=== PATIENT | male | born 1960 ===

== ENCOUNTER 2017-04-02 16:48 | Inpatient (IN) | payer MEDICAID, OTHER ==
[2017-04-02 16:49] VITALS: BMI 23.7
[2017-04-02 17:56] LABS: CHLORIDE 95 mmol/L (98-107)
[2017-04-02 17:57] LABS: SODIUM 137 mmol/L (132-148)
[2017-04-02 17:59] LABS: ALB/GLOB RATIO 1.1 (1.0-2.1); ALKALINE PHOSPHATASE 94 U/L (38-126); AST/SGOT 85 U/L (17-59); BILIRUBIN,TOTAL 0.9 mg/dL (0.2-1.3); CARBON DIOXIDE 29 mmol/L (22-30); GFR AFRICAN-AMERICAN > 60; TOTAL PROTEIN 9.1 g/dL (6.3-8.3)
[2017-04-02 18:00] LABS: ALCOHOL SERUM < 10 mg/dl (0-10); ALT/SGPT 83 U/L (21-72); BLOOD UREA NITROGEN 26 mg/dL (9-20); CALCIUM 9.6 mg/dl (8.6-10.4); GLUCOSE,RANDOM 122 mg/dL (75-110)
[2017-04-02 18:07] LABS: RBC URINE 9 /hpf (0-3); URINE BACTERIA OCC (<OCC); URINE BILIRUBIN 1+ (NEGATIVE); URINE COLOR Amber (YELLOW); URINE GLUCOSE (UA) NORMAL (Normal); URINE KETONE TRACE mg/dL (NEGATIVE); URINE PROTEIN 2+ mg/dL (NEGATIVE); WBC URINE 7 /hpf (0-5)
[2017-04-02 18:09] LABS: URINE BLOOD 1+ (NEGATIVE); URINE LEUKOCYTE ESTERASE 1+ Leu/uL (Negative)
[2017-04-02 18:12] LABS: BASO % 0.3 % (0.0-2.0); EOS % 0.1 % (0.0-4.0); HEMATOCRIT 36.2 % (35.0-51.0); LYMPH # 1.2 K/uL (1.0-4.3); LYMPH % 11.2 % (20.0-40.0); MEAN CELL VOLUME 82.2 fL (80.0-94.0); MEAN CORPUSCULAR HEMOGLOBIN 27.4 pg (27.0-31.0); MEAN CORPUSCULAR HGB CONC 33.4 g/dL (33.0-37.0); MEAN PLATELET VOLUME 8.7 fL (7.2-11.7); MONO # 0.7 K/uL (0.0-0.8); MONO % 6.9 % (0.0-10.0); RED CELL DISTRIBUTION WIDTH 16.5 % (11.5-14.5); WHITE BLOOD COUNT 10.6 K/uL (4.8-10.8)
--- NOTE | 2017-04-02 18:41 | C.PDOC ---
History Of Present Illness 56 y/o male presents to ED requesting detox from Heroin IV and with complaints of low back pain. Patient states he uses 5 bags of heroin daily. Patient denies fever, chills, chest pain, sob, nausea, vomiting or any other complaints at this time. Time Seen by Provider: 04/02/17 17:22 Chief Complaint (Nursing): Substance Abuse History Per: Patient History/Exam Limitations: no limitations Onset/Duration Of Symptoms: Days Current Symptoms Are (Timing): Still Present Suicide/Self Injury Attempted (Context): None Past Medical History Reviewed: Historical Data, Nursing Documentation, Vital Signs Vital Signs: Last Vital Signs Temp 97.6 F 04/03/17 05:24 Pulse 56 L 04/03/17 05:24 Resp 18 04/03/17 05:24 BP 136/75 04/03/17 05:24 Pulse Ox 99 04/03/17 05:24 - Medical History PMH: Back Problems Surgical History: No Surg Hx Family History: States: No Known Family Hx - Social History Hx Alcohol Use: No Hx Substance Use: Yes (heroin IV) - Immunization History Hx Tetanus Toxoid Vaccination: Yes Hx Influenza Vaccination: Yes Hx Pneumococcal Vaccination: Yes Review Of Systems Constitutional: Negative for: Fever, Chills Cardiovascular: Negative for: Chest Pain Respiratory: Negative for: Cough, Shortness of Breath Gastrointestinal: Negative for: Nausea, Vomiting Skin: Negative for: Rash Physical Exam - Physical Exam Appears: Non-toxic, No Acute Distress Skin: Normal Color, Warm, Dry, No Rash Head: Atraumatic, Normacephalic Eye(s): bilateral: Normal Inspection, PERRL, EOMI Oral Mucosa: Moist Neck: Normal ROM, Supple Chest: Symmetrical Cardiovascular: Rhythm Regular Respiratory: Normal Breath Sounds, No Rales, No Rhonchi, No Wheezing Gastrointestinal/Abdominal: Soft, No Tenderness, No Guarding Extremity: Normal ROM, Capillary Refill (<2 seconds) Neurological/Psych: Oriented x3, Normal Motor, Normal Sensation ED Course And Treatment - Laboratory Results Result Diagrams: 04/02/17 17:41 04/02/17 17:41 O2 Sat by Pulse Oximetry: 96 (RA) Pulse Ox Interpretation: Normal Progress Note: Patient is medically cleared to be evaluated and admitted for Detox. Medical Decision Making Medical Decision Making: UTI noted in UA and given Cipro Crisis advised patient continue every 12 hrs for 5 days Disposition - Disposition Disposition: HOSPITALIZED Disposition Time: 18:39 Condition: STABLE - Clinical Impression Clinical Impression: Drug dependence, UTI (urinary tract infection) - PA / [employer] / Resident Statement MD/DO has reviewed & agrees with the documentation as recorded. - Scribe Statement The provider has reviewed the documentation as recorded by the Destin Wilkinson All medical record entries made by the Timoibkahlil were at my direction and personally dictated by me. I have reviewed the chart and agree that the record accurately reflects my personal performance of the history, physical exam, medical decision making, and the department course for this patient. I have also personally directed, reviewed, and agree with the discharge instructions and disposition. Decision To Admit - Pt Status Changed To: Hospital Disposition Of: Inpatient - Admit Certification Admit to Inpatient:: After my assessment, the patient will require hospitalization for at least two midnights. This is because of the severity of symptoms shown, intensity of services needed, and/or the medical risk in this patient being treated as an outpatient. - InPatient: Physician Admission Certification: I certify that this patient requires 2 or more midnights of care for the following reason:: patient will need more then 2 days to complete detox. - . Bed Request Type: Detox Admitting Physician: Ankush Adorno Patient Diagnosis: Drug dependence, UTI (urinary tract infection)
--- NOTE | 2017-04-02 19:08 | PCM.BM ---
<Una Ashraf M - Last Filed: 04/02/17 19:07> Treatment Plan Problems - Problems identified on initial assessmt Ineffective Coping Skills Date Initiated: 04/02/17 Time Initiated: 19:07 Assessment reference: NA Status: Active Treatment assets and liabiliti Patient Assests: ADL independent Patient Liabilities: substance abuse - Milieu Protocol Maintain good personal hygiene: daily Encourage regular showers, daily Remind patient to perform daily oral care, every shift Assist patient to perform ADL's Maintain personal safety: every shift Educate patient to report safety concerns to staff, every shift Monitor environment for contraband/sharps Medication safety: Monitor for expected outcome, potential side effects: every shift, Assess barriers to learning: every shift, Assess readiness for medication education: every shift <Gamaliel Valdes - Last Filed: 04/03/17 22:38> - Diagnosis (1) Opioid use disorder, severe, dependence Status: Acute Interventions: 04/03/17 22:37 * Assess 7x/week regarding severity of withdrawal * Educate regarding risks, benefits, side effects and alternatives of medications * Use Motivational Interviewing for abstinence * Use CBT for relapse prevention * Medication management for withdrawal symptoms * Encourage medication assisted treatment *
[2017-04-02] MEDS ORDERED: Aluminum Hydroxide/Magnesium Hydroxide Susp (30 mL) PO PRN (20:59)
[2017-04-03] MEDS: Insulin Detemir 100 units/ml Vial (Levemir) SC SCH (11:03)
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
[2017-04-04] MEDS: Insulin Detemir 100 units/ml Vial (Levemir) SC SCH (09:55)
--- NOTE | 2017-04-04 14:10 | PCM.PYCHPN ---
Psychiatric Progress Note - Psychiatric Progress Note Patient seen today, length of contact: 16 mins Patient Chief Complaint: "I'm not good " Problems Identified/Issues Discussed: Patient has not slept the past 2 nights and is restless. The pt is seen, chart reviewed, case discussed with staff. Support given, CBT, and [place] used briefly Improving slowly and needs more time. No SEs from medications, risks discussed. After care discussed- patient wants to go to inpatient rehab Medication Change: Yes (detox changes daily ) Medical Record Reviewed: Yes Mental Status Examination - Cognitive Function Orientation: Person, Place, Situation, Time Attention: WNL Concentration: WNL Association: WNL Fund of Knowledge: WNL - Mood Mood: Neutral - Affect Affect: Blunted - Speech Speech: Appropriate - Formal Thought Process Formal Thought Process: No Impairment - Suicidal Ideation Suicidal Ideation: No - Homicidal Ideation Homicidal Ideation: No Goal/Treatment Plan - Goal/Treatment Plan Need for Continued Stay: Remain at risks for inpatient hospitalization, Discharge may exacerbated symptoms Progress Toward Problem(s) and Goals/Treatment Plan: methadone detox As needed medications Add more sleep meds Gabapentin for augmentation Attend groups and activities Supportive therapy and psychoeducation [place] for abstinence CBT for relapse prevention Encourage MAT Refer to rehab or IOP Attend self-help groups as well Estimated Date of D/C: 04/08/17
[2017-04-05] MEDS: Insulin Detemir 100 units/ml Vial (Levemir) SC SCH (09:50)
--- NOTE | 2017-04-05 10:32 | PCM.PYCHPN ---
Psychiatric Progress Note - Psychiatric Progress Note Patient seen today, length of contact: 16 mins Patient Chief Complaint: I'm still withdrawing Problems Identified/Issues Discussed: Patient seen and evaluated, chart reviewed and discussed with the nurse. The patient reports improvement in his mood but still reports withdrawal symptoms including shakes, anxiety, headaches and sweating. As per the nurse patient is improving but still reports of anxiety. Patient has some anxiety and denies any suicidal ideation or homicidal ideation. Patient is taking medications and denies any side effects. He needs more time to stabilize. He received methadone 15 mg daily Supportive therapy and psychoeducation were given. Medication Change: Yes (detox changes daily ) Medical Record Reviewed: Yes Mental Status Examination - Cognitive Function Orientation: Person, Place, Situation, Time Attention: WNL Concentration: WNL Association: WNL Fund of Knowledge: WNL - Mood Mood: Neutral - Affect Affect: Blunted - Speech Speech: Appropriate - Formal Thought Process Formal Thought Process: No Impairment - Suicidal Ideation Suicidal Ideation: No - Homicidal Ideation Homicidal Ideation: No Goal/Treatment Plan - Goal/Treatment Plan Need for Continued Stay: Remain at risks for inpatient hospitalization, Discharge may exacerbated symptoms Progress Toward Problem(s) and Goals/Treatment Plan: methadone detox As needed medications Add more sleep meds Gabapentin for augmentation Attend groups and activities Supportive therapy and psychoeducation [place] for abstinence CBT for relapse prevention Encourage MAT Refer to rehab or IOP Attend self-help groups as well Estimated Date of D/C: 04/08/17
[2017-04-06] MEDS: Insulin Detemir 100 units/ml Vial (Levemir) SC SCH (10:08)
--- NOTE | 2017-04-06 10:57 | PCM.PYCHPN ---
Psychiatric Progress Note - Psychiatric Progress Note Patient seen today, length of contact: 16 mins Patient Chief Complaint: I couldn't sleep last night.' Problems Identified/Issues Discussed: Patient seen and evaluated, chart reviewed and discussed with the nurse. The patient reports that he couldn't sleep last night due to the withdrawal symptoms. He also reports anxiety, back pains and joint pains. Patient reports some irritability but denies any suicidal ideation or homicidal ideation. Patient is taking medications and denies any side effects. He received methadone 10 mg today. He needs more time to stabilize. Supportive therapy and psychoeducation were given. Medication Change: Yes (detox changes daily ) Medical Record Reviewed: Yes Mental Status Examination - Cognitive Function Orientation: Person, Place, Situation, Time Attention: WNL Concentration: WNL Association: WNL Fund of Knowledge: WNL - Mood Mood: Neutral - Affect Affect: Blunted - Speech Speech: Appropriate - Formal Thought Process Formal Thought Process: No Impairment - Suicidal Ideation Suicidal Ideation: No - Homicidal Ideation Homicidal Ideation: No Goal/Treatment Plan - Goal/Treatment Plan Need for Continued Stay: Remain at risks for inpatient hospitalization, Discharge may exacerbated symptoms Progress Toward Problem(s) and Goals/Treatment Plan: methadone detox As needed medications Add more sleep meds Gabapentin for augmentation Attend groups and activities Supportive therapy and psychoeducation [place] for abstinence CBT for relapse prevention Encourage MAT Refer to rehab or IOP Attend self-help groups as well Estimated Date of D/C: 04/08/17 - Smoking Cessation Smoking Cessation Initiated: No
[2017-04-07] MEDS: Insulin Detemir 100 units/ml Vial (Levemir) SC SCH (09:45)
--- NOTE | 2017-04-07 16:14 | PCM.PYCHPN ---
Psychiatric Progress Note - Psychiatric Progress Note Patient seen today, length of contact: 16 mins Patient Chief Complaint: "I'm fine " Problems Identified/Issues Discussed: Patient continues to have abnormal sleep. The pt is seen, chart reviewed, case discussed with staff. Support given, CBT, and [place] used briefly Improving slowly and needs more time. No SEs from medications, risks discussed. After care discussed- patient to attend [facility] Medication Change: Yes (detox changes daily ) Medical Record Reviewed: Yes Mental Status Examination - Cognitive Function Orientation: Person, Place, Situation, Time Attention: WNL Concentration: WNL Association: WNL Fund of Knowledge: WNL - Mood Mood: Neutral - Affect Affect: Blunted - Speech Speech: Appropriate - Formal Thought Process Formal Thought Process: No Impairment - Suicidal Ideation Suicidal Ideation: No - Homicidal Ideation Homicidal Ideation: No Goal/Treatment Plan - Goal/Treatment Plan Need for Continued Stay: Remain at risks for inpatient hospitalization, Discharge may exacerbated symptoms Progress Toward Problem(s) and Goals/Treatment Plan: methadone detox As needed medications Add more sleep meds Gabapentin for augmentation Attend groups and activities Supportive therapy and psychoeducation [place] for abstinence CBT for relapse prevention Encourage MAT Refer to rehab or IOP Attend self-help groups as well Estimated Date of D/C: 04/08/17
--- NOTE | 2017-04-08 08:43 | PCM.PYCHDC ---
Mental Status Examination - Mental Status Examination Orientation: Person, Place, Situation, Time Memory: Intact Mood: Neutral Affect: Blunted Speech: Appropriate Attention: WNL Concentration: WNL Language: Word Retrieval Association: WNL Fund of Knowledge: WNL Formal Thought Process: No Impairment Suicidal Ideation: No Current Homicidal Ideation?: No Discharge Summary - Discharge Note Reason for Hospitalization: opioid use detox Laboratory Data: Abnormal Lab Results 04/07/17 04/07/17 04/07/17 11:24 17:07 21:01 POC Glucose (mg/dL) 259 H 254 H 265 H 04/08/17 07:53 POC Glucose (mg/dL) 290 H Consultations:: List each consultation separately and include: 1. Reason for request. 2. Findings. 3. Follow-up Summary of Hospital Course include:: 1. Description of specific treatment plan utilized for patients during their course of treatmen. 2. Summarize the time- course for resolution of acute symptoms and/or regressed behaviors. 3. Describe issues identified and worked on during hospitalization. 4. Describe medication utilized. 5. Describe medical problems identified and treated. 6. Reassessment of suicide risk Summary of Hospital Course: Patient was admitted and started on treatment with psychotherapy, support, psychoeducation and medications including methadone taper, clonidine 1MG po q4h PRN, Lexapro 10mh po daily, atarax 50 mg po q6h prn, trazadone 100mg PO HS, Librium taper, Maalox 30 ml PO TID, Quetiapine 100mg. MA and CBT used. Patient attended groups and activities, as well as mileu therapy. All the risks and benefits of medications are discussed with patient who understood and agreed. The patient improved with the treatments provided. Patient to attend [facility] in . - Final Diagnosis (DSM 5) Condition upon Discharge: STABLE DSM 5: opioid use disorder severe Disposition: REHAB FACILITY/REHAB UNIT Follow-up Treatment Plan: Continue below medications after discharge. use relapse prevention skills and try to stay away from triggers. Please return to ER or call 911 suicidal, homicidal or symptoms relapse. Stay away from tress, alcohol, drugs. See PMD regularly and get labs done. Follow up with [facility] for DM Prescriptions/Medication Reconciliation: Ciprofloxacin [Cipro] 500 mg PO BID #10 tab Cyclobenzaprine [Flexeril] 10 mg PO HS #30 tab Insulin Detemir [Levemir] 10 unit SC DAILY #300 unit Mirtazapine [Remeron] 15 mg PO HS #30 tab QUEtiapine [Seroquel] 100 mg PO HS #30 tab - Antipsychotic Medications Pt discharged on 2 or more routine antipsychotic medications: No
[2017-04-08] MEDS: Insulin Detemir 100 units/ml Vial (Levemir) SC SCH (09:14)
[2017-04-08 09:42] VITALS: BP 123/79; PULSE 82; RESP 18; TEMP 97.9; O2SAT 99
== END 2017-04-08 12:00 | disposition home or self-care (01) | DRG 744 ==
LOC: C.ER 16:48 → C.9E 18:41 → C.7D 18:55
PROVIDERS: ADMIT Psychiatry & Neurology Psychiatry; ATTEND Psychiatry & Neurology Psychiatry
PROC: HZ2ZZZZ Detoxification Services for Substance Abuse Treatment (ICD-10-PCS; principal; 2017-04-02)
PROC: HZ52ZZZ Individual Psychotherapy for Substance Abuse Treatment, Cognitive-Behavioral (ICD-10-PCS; 2017-04-02)
PROC: HZ42ZZZ Group Counseling for Substance Abuse Treatment, Cognitive-Behavioral (ICD-10-PCS; 2017-04-02)
PROC: HZ59ZZZ Individual Psychotherapy for Substance Abuse Treatment, Supportive (ICD-10-PCS; 2017-04-02)
PROC: HZ56ZZZ Individual Psychotherapy for Substance Abuse Treatment, Psychoeducation (ICD-10-PCS; 2017-04-02)
PROC: HZ46ZZZ Group Counseling for Substance Abuse Treatment, Psychoeducation (ICD-10-PCS; 2017-04-02)
DX: F11.23 Opioid dependence with withdrawal (principal); N39.0 Urinary tract infection, site not specified